=== PATIENT | female | born 1990 | race Caucasian/White ===

== ENCOUNTER 2016-11-20 07:48 | Emergency (ER) | payer SELFPAY ==
[~2016-11-20] VITALS: Ht 165.1 cm; Wt 65.8 kg
[2016-11-20] MEDS ORDERED: ZITHROMAX250 MG PO (08:03)
== END 2016-11-20 08:07 | disposition home or self-care (01) ==
LOC: ED 07:48
DX: J40 Bronchitis, not specified as acute or chronic (principal); J02.9 Acute pharyngitis, unspecified

== ENCOUNTER 2017-09-02 14:49 | Emergency (ER) | payer SELFPAY ==
[~2017-09-02] VITALS: Ht 157.4 cm; Wt 63.5 kg
[~2017-09-02 14:49] MED LIST: ZITHROMAX250 MG PO
[2017-09-02 15:11] LABS: BILIRUBIN NEGATIVE (NEGATIVE); BLOOD 3+ (NEGATIVE); CLARITY SL CLOUDY (CLEAR); COLOR YELLOW (YELLOW); GLUCOSE NEGATIVE (NEGATIVE); KETONE TRACE (NEGATIVE); LEUKO ESTERASE 1+ (NEGATIVE); NITRITE NEGATIVE (NEGATIVE); PH 6.5 (5.0-9.0); UROBILINOGEN 0.2 E.U./dl (0.2-1.0)
[2017-09-02 15:17] LABS: BASO % 0.2 % (0.0-1.0); EOS % 0.3 % (1.0-4.0); HEMATOCRIT 44.3 % (37.0-47.0); HEMOGLOBIN 15.1 g/dl (12.0-16.0); LYMPH # 1.4 10*3/uL (1.3-4.4); MEAN CELL VOLUME 96.1 fl (81.0-99.0); MEAN CORPUSCULAR HGB 32.8 pg (27.0-31.0); MEAN CORPUSCULAR HGB CONC 34.1 g/dl (33.0-37.0); MEAN PLATELET VOLUME 9.1 fl (9.6-12.3); MONO # 0.7 10*3/uL (0.1-1.0); MONO % 5.9 % (3.0-9.0); NEUT # 9.5 10*3/uL (2.3-7.9); NEUT % 81.3 % (47.0-73.0); PLATELET COUNT AUTOMATED 400 10*3/uL (130-400); RED BLOOD COUNT 4.61 10*6/uL (4.10-5.10); RED CELL DISTRI WIDTH 12.6 % (0-14.5); WHITE BLOOD COUNT 11.7 10*3/uL (4.8-10.8)
[2017-09-02 15:22] LABS: BACTERIA 2+; MUCOUS 1+
[2017-09-02 15:23] LABS: EPITHELIAL CELLS 16-20; RBC 51-100 rbc/hpf (0-2)
[2017-09-02 15:24] LABS: WBC 16-20 wbc/hpf (0-5)
[2017-09-02 15:30] LABS: INTERNATIONAL NORM RATIO 0.9 (2.0-3.5)
[2017-09-02 15:43] LABS: ALBUMIN 4.4 gm/dl (3.1-4.5); ALKALINE PHOSPHATASE 112 U/L (45-117); BUN 22 mg/dl (7-24); CHLORIDE 103 mmol/L (98-107); CREATININE 1.09 mg/dL (0.55-1.02); POTASSIUM 4.5 mmol/L (3.5-5.1); SGOT/AST 19 IU/L (3-35); SGPT/ALT 20 U/L (12-78); SODIUM 140 mmol/L (136-145); TOTAL PROTEIN 7.5 gm/dL (6.4-8.2)
[2017-09-02 16:04] LABS: FREE T4 0.81 ng/dl (0.76-1.46)
[2017-09-02 16:08] LABS: THYROID STIM HORMONE (HS) 0.781 uIU/ml (0.358-4.75)
[2017-09-02] MEDS ORDERED: MACROBID100 M1 PO ×2 (17:01→17:14)
[2017-09-02] MEDS ORDERED: PYRIDIUM100 MG PO ×2 (17:01→17:14)
== END 2017-09-02 17:01 | disposition home or self-care (01) ==
LOC: ED 14:49
PROVIDERS: Nurse Practitioner; Nurse Practitioner Family
DX: N39.0 Urinary tract infection, site not specified (principal); R31.9 Hematuria, unspecified

== ENCOUNTER 2018-02-07 16:36 | Emergency (ER) | payer OTHER ==
[~2018-02-07] VITALS: Ht 157.4 cm; Wt 65.8 kg
[~2018-02-07 16:36] MED LIST changes: +MACROBID100 M1 PO; +PYRIDIUM100 MG PO
[2018-02-07 16:50] LABS: BILIRUBIN NEGATIVE (NEGATIVE); BLOOD 2+ (NEGATIVE); CLARITY CLEAR (CLEAR); COLOR YELLOW (YELLOW); GLUCOSE NEGATIVE (NEGATIVE); KETONE NEGATIVE (NEGATIVE); LEUKO ESTERASE 1+ (NEGATIVE); NITRITE NEGATIVE (NEGATIVE); SPECIFIC GRAVITY >= 1.030 (1.005-1.030); UROBILINOGEN 0.2 E.U./dl (0.2-1.0)
[2018-02-07 16:55] LABS: BACTERIA 2+; MUCOUS TRACE; WBC 21-30 wbc/hpf (0-5)
[2018-02-07] MEDS ORDERED: SEPTDS PO (17:25)
== END 2018-02-07 17:28 | disposition home or self-care (01) ==
LOC: ED 16:36
PROVIDERS: Physician Assistant
DX: N39.0 Urinary tract infection, site not specified (principal); Z79.2 Long term (current) use of antibiotics; Z79.899 Other long term (current) drug therapy

== ENCOUNTER 2018-03-29 15:49 | Emergency (ER) | payer OTHER ==
[~2018-03-29] VITALS: Wt 63.5 kg
[~2018-03-29 15:49] MED LIST changes: +SEPTDS PO
[2018-03-29] MEDS ORDERED: ROBAXIN500 M1 PO (17:05)
[2018-03-29] MEDS ORDERED: PREDNISONE20 M1 PO (17:05)
== END 2018-03-29 17:37 | disposition home or self-care (01) ==
LOC: ED 15:49
DX: M54.12 Radiculopathy, cervical region (principal)

== ENCOUNTER 2019-11-23 17:14 | Emergency (ER) | payer OTHER ==
[~2019-11-23] VITALS: Ht 157.4 cm; Wt 61.2 kg
[~2019-11-23 17:14] MED LIST changes: +PREDNISONE20 M1 PO; +ROBAXIN500 M1 PO
== END 2019-11-23 20:08 | disposition home or self-care (01) ==
LOC: ED 17:14
DX: G43.909 Migraine, unspecified, not intractable, without status migrainosus (principal); J45.909 Unspecified asthma, uncomplicated; Z79.899 Other long term (current) drug therapy

== ENCOUNTER → 2019-11-25 | Outpatient (CLI) | payer OTHER | END | disposition home or self-care (01) | LOC: COVID19 13:57 | PROVIDERS: ATTEND Internal Medicine | DX: Z20.828 Contact with and (suspected) exposure to other viral communicable diseases (principal) ==

== ENCOUNTER 2021-01-30 11:51 | Emergency (ER) | payer BC ==
[~2021-01-30] VITALS: Ht 157.4 cm; Wt 63.5 kg
[2021-01-30] MEDS ORDERED: LAMICTAL200 MG PO (12:13)
[2021-01-30] MEDS ORDERED: METHOCARBAMOL500 M1 PO (15:21)
[2021-01-30] MEDS ORDERED: PREDNISONE20 M1 PO (15:21)
== END 2021-01-30 16:00 | disposition home or self-care (01) ==
LOC: ED 11:51
DX: M54.41 Lumbago with sciatica, right side (principal); Z79.899 Other long term (current) drug therapy

== ENCOUNTER 2021-04-23 21:34 | Emergency (ER) | payer BC ==
[~2021-04-23] VITALS: Ht 157.4 cm; Wt 67.6 kg
[~2021-04-23 21:34] MED LIST changes: +LAMICTAL200 MG PO; +METHOCARBAMOL500 M1 PO
[2021-04-24] MEDS ORDERED: METHOCARBAMOL750 M1 PO (00:10)
[2021-04-24] MEDS ORDERED: NAPROXEN250 MG PO (00:10)
== END 2021-04-24 00:19 | disposition home or self-care (01) ==
LOC: ED 21:34
DX: S16.1XXA Strain of muscle, fascia and tendon at neck level, initial encounter (principal); R51.9 Headache, unspecified; Z79.899 Other long term (current) drug therapy; X58.XXXA Exposure to other specified factors, initial encounter; Y93.89 Activity, other specified; Y92.89 Other specified places as the place of occurrence of the external cause; Y99.8 Other external cause status

== ENCOUNTER 2021-11-15 19:23 | Emergency (ER) | payer BC ==
[~2021-11-15] VITALS: Wt 65.8 kg
[~2021-11-15 19:23] MED LIST changes: +METHOCARBAMOL750 M1 PO; +NAPROXEN250 MG PO
[2021-11-15] MEDS ORDERED: AMOXICILLIN500 M2 PO (21:00)
== END 2021-11-15 21:14 | disposition home or self-care (01) ==
LOC: ED 19:23
DX: J02.9 Acute pharyngitis, unspecified (principal); Z79.899 Other long term (current) drug therapy; G43.909 Migraine, unspecified, not intractable, without status migrainosus